=== PATIENT | female | born 1995 | race American Indian/Alaskan Native ===

== ENCOUNTER 2019-04-15 09:28 | Outpatient (CLI) | payer MEDICAID ==
[2019-04-15 10:28] VITALS: BP 124/61
[2019-04-15] MEDS ORDERED: ONDANSETRON 4 MG/2 ML INJ IV ONE (10:52)
[2019-04-15] MEDS ORDERED: LACTATED RINGERS 1,000 ML ONE (11:09)
[2019-04-15] MEDS ORDERED: LACTATED RINGERS 1,000 ML IV SCH (12:00)
== END 2019-04-15 12:33 | disposition home or self-care (01) ==
LOC: TRG 09:28
PROVIDERS: ATTEND Obstetrics & Gynecology
DX: O62.9 Abnormality of forces of labor, unspecified (principal); O48.0 Post-term pregnancy; O99.323 Drug use complicating pregnancy, third trimester; F12.90 Cannabis use, unspecified, uncomplicated; Z3A.40 40 weeks gestation of pregnancy; Z87.891 Personal history of nicotine dependence
CPT/HCPCS: 59025; 96374; J2405; J7120; 96360